=== PATIENT | female | born 1990 ===

== ENCOUNTER → 2017-03-29 | Outpatient (REF) | payer OTHER ==
[2017-03-29 14:08] LABS: BASO % 0.2 % (0.0-1.0); EOS # 0.1 K/mm3 (0.0-0.50); EOS % 1.2 % (0.0-3.0); LARGE UNSTAINED CELL # 0.1 K/mm3 (0.0-0.4); LARGE UNSTAINED CELL % 0.6 % (0.0-4.0); LYMPH # 1.7 K/mm3 (1.5-6.5); LYMPH % 17.8 % (24.0-44.0); MEAN CORPUSCULAR HEMOGLOBIN 25.2 pg (27.0-33.0); MEAN CORPUSCULAR HGB CONC 31.6 g/dl (32.0-36.5); MEAN CORPUSCULAR VOLUME 79.9 fl (80.0-96.0); MONO # 0.4 K/mm3 (0.0-0.8); MONO % 4.2 % (0.0-5.0); NEUTROPHILS # 7.2 K/mm3 (1.8-7.7); PLATELET COUNT, AUTOMATED 222 k/mm3 (150-450); RED CELL DISTRIBUTION WIDTH 21.4 % (11.5-14.5); WHITE BLOOD COUNT 9.4 K/mm3 (4.0-10.0)
[2017-03-29 14:31] LABS: ALBUMIN 3.1 GM/DL (3.2-5.2); ALKALINE PHOSPHATASE 65 U/L (45-117); ALT/SGPT 37 U/L (12-78); ANION GAP 7 MEQ/L (8-16); AST/SGOT 23 U/L (15-37); BILIRUBIN,TOTAL 0.2 MG/DL (0.2-1.0); BLOOD UREA NITROGEN 6 MG/DL (7-18); CALCIUM LEVEL 8.8 MG/DL (8.5-10.1); CARBON DIOXIDE LEVEL 25 MEQ/L (21-32); CHLORIDE LEVEL 106 MEQ/L (98-107); CREATININE FOR GFR 0.55 MG/DL (0.55-1.02); GLOMERULAR FILTRATION RATE > 60.0 (>60); GLUCOSE, FASTING 63 MG/DL (70-105); SODIUM LEVEL 138 MEQ/L (136-145); TOTAL PROTEIN 6.2 GM/DL (6.4-8.2)
[2017-03-29 15:07] LABS: ERYTHROCYTE SEDIMENTATION RATE 18 mm/hr (0-20)
== END ==
LOC: M LABNEURO 13:39
PROVIDERS: ATTEND Psychiatry & Neurology Neurology
DX: R51 Headache (principal)

== ENCOUNTER 2017-07-30 19:32 | Inpatient (IN) | payer OTHER ==
[~2017-07-30] VITALS: Ht 167.6 cm; Wt 79.8 kg
[2017-07-30 19:40] VITALS: BP 143/87
[2017-07-30] MEDS ORDERED: PRENTAB9 PO (19:48)
[2017-07-30] MEDS ORDERED: CLAR10CA3 PO (19:48)
[2017-07-30] MEDS ORDERED: IRON50TA PO (19:49)
[2017-07-30 20:07] VITALS: BP 134/81
[2017-07-30 20:57] VITALS: BP 134/90
[2017-07-30 22:36] LABS: MEAN CORPUSCULAR HEMOGLOBIN 29.9 pg (27.0-33.0); MEAN CORPUSCULAR HGB CONC 34.3 g/dl (32.0-36.5); MEAN CORPUSCULAR VOLUME 87.1 fl (80.0-96.0); WHITE BLOOD COUNT 13.2 10^3/uL (4.0-10.0)
[2017-07-31] VITALS (57 sets, daily range): BP systolic 96–134; BP diastolic 50–87
[2017-07-31] MEDS ORDERED: BUTORPHANOL 2 MG/ML INJ (J0595) IV ONE (02:00)
[2017-07-31] MEDS ORDERED: PROMETHAZINE INJ 25 MG/ML VIAL (J2550) IV ONE (02:00)
[2017-07-31] MEDS ORDERED: PROMETHAZINE INJ 25 MG/ML VIAL (J2550) As Ordered ONE (02:04)
[2017-07-31] MEDS ORDERED: BUTORPHANOL 2 MG/ML INJ (J0595) As Ordered ONE (02:05)
[2017-07-31] MEDS: PRENATAL VITAMINS CHEWABLE TABLET PO SCH (09:00)
[2017-07-31] MEDS ORDERED: LR 1,000 ML IV SCH (09:17)
[2017-07-31] MEDS ORDERED: OXYTOCIN DRIP 30 UNITS in APPROPRIATE DILUENT 1 EA IV SCH (09:30)
[2017-07-31] MEDS ORDERED: FENTANYL 2MCG/ML ROPIVACAINE 0.2% IN 0.9% NACL 200ML IVBAG As Ordered ONE (11:28)
[2017-07-31] MEDS ORDERED: diphenhydrAMINE INJ 50MG/ML VIAL (J1200) IV PRN (13:00)
[2017-07-31] MEDS ORDERED: EPIDURAL COMMENT XX SCH (13:00)
[2017-07-31] MEDS ORDERED: FENTANYL/ROPIVACAINE/NACL BAG 200 ML EPIDURAL SCH (13:00)
[2017-07-31] MEDS ORDERED: LACTATED RINGER'S 1000 ML IV PRN (13:00)
[2017-07-31] MEDS ORDERED: REFRIGERATOR IV KEYS XX PRN (13:00)
[2017-07-31] MEDS ORDERED: ONDANSETRON 4MG/2ML VIAL (J2405) IV PRN ×4 (13:00→17:45)
[2017-07-31] MEDS ORDERED: NALOXONE INJ 0.4 MG/1 ML VIAL (J2310) IV PRN ×3 (13:00→16:35)
[2017-07-31] MEDS ORDERED: EPIDURAL/PCA KEYS XX PRN (13:00)
[2017-07-31] MEDS: ePHEDrine SULFATE 25 MG/5 ML(5MG/ML) SYRINGE IV PRN ×3 (13:11→13:30)
[2017-07-31] MEDS ORDERED: LIDOCAINE PRES-FREE 2% 10ML AMP As Ordered ONE (15:59)
[2017-07-31] MEDS ORDERED: OXYTOCIN INJ 10 UNITS/ML VIAL (J2590) As Ordered ONE (16:01)
[2017-07-31] MEDS ORDERED: ceFAZolin 2 GM/D5W 50 ML IV BAG (J0690) As Ordered ONE (16:03)
[2017-07-31] MEDS ORDERED: ONDANSETRON 4MG/2ML VIAL (J2405) As Ordered ONE (16:03)
[2017-07-31] MEDS ORDERED: BICITRA 30ML SOLN UDC As Ordered ONE (16:03)
[2017-07-31] MEDS ORDERED: KETOROLAC 60 MG/2 ML VIAL (J1885) As Ordered ONE (16:03)
[2017-07-31] MEDS ORDERED: AZITHROMYCIN INJ 500MG VIAL (J0456) As Ordered ONE (16:04)
[2017-07-31] MEDS ORDERED: MORPHINE PRES-FREE INJ 10 MG/10 ML VIAL (J2274) As Ordered ONE (16:05)
[2017-07-31] MEDS ORDERED: AZITHROMYCIN INJ 500 MG, VIAL MATE ADAPTER 1 EACH in D5W 250 ML IV ONE (16:15)
[2017-07-31] MEDS ORDERED: BICITRA 30ML SOLN UDC PO ONE (16:15)
[2017-07-31] MEDS ORDERED: dexameTHASONE 4 MG/ML 1ML VIAL (J1100) As Ordered ONE (16:30)
[2017-07-31] MEDS ORDERED: METOCLOPRAMIDE INJ 10MG/2ML VIAL (J2765) IV PRN (16:35)
[2017-07-31] MEDS ORDERED: NALBUPHINE HCL 10 MG/ML AMP (J2300) IV PRN ×2 (16:35→17:45)
[2017-07-31] MEDS ORDERED: MIDAZOLAM INJ 2 MG/2 ML VIAL (J2250) As Ordered ONE (16:46)
[2017-07-31 16:57] LABS: CORD GAS ABE V -2.2; CORD GAS HCO3 V 23.3 MEQ/L; CORD GAS O2 SAT V 21.8 %; CORD GAS PCO2 V 42.2 mmHg; CORD GAS PH V 7.359 UNITS; CORD GAS PO2 V 12.3 mmHg; CORD GAS SBC V 20.6 MEQ/L; CORD GAS TCO2 V 24.5 MEQ/L
[2017-07-31] MEDS ORDERED: PERCOCET 5MG/325MG TAB PO PRN (17:15)
[2017-07-31] MEDS ORDERED: RHOGAM 300 MCG (1500 IU) INJ (J2790) IM SCH (17:15)
[2017-07-31] MEDS ORDERED: PROMETHAZINE 25 MG TAB PO PRN (17:15)
[2017-07-31] MEDS ORDERED: MEASLES,MUMPS,RUBELLA VACCINE INJ (MMR-II) (90707) SC SCH (17:15)
[2017-07-31] MEDS ORDERED: METHYLERGONOVINE MALEATE 0.2 MG/ML VIAL (J2210) IM PRN (17:15)
[2017-07-31] MEDS ORDERED: fentaNYL 100 MCG/2 ML INJECTION (J3010) IV PRN (17:45)
[2017-07-31] MEDS ORDERED: SIMETHICONE 80 MG CHEW TAB PO PRN (18:45)
[2017-07-31] MEDS: LR 1,000 ML IV SCH (18:46)
[2017-07-31] MEDS: DOCUSATE SODIUM 100 MG CAP PO SCH (22:30)
[2017-07-31] MEDS: KETOROLAC 30 MG/ML VIAL (J1885) IV SCH (22:31)
[2017-08-01 02:00] VITALS: BP 110/68
[2017-08-01] MEDS: LR 1,000 ML IV SCH (05:22)
[2017-08-01] MEDS: KETOROLAC 30 MG/ML VIAL (J1885) IV SCH ×3 (05:22→15:05)
[2017-08-01 06:00] VITALS: BP 106/61
[2017-08-01 06:41] LABS: MEAN CORPUSCULAR HEMOGLOBIN 30.8 pg (27.0-33.0); MEAN CORPUSCULAR HGB CONC 34.1 g/dl (32.0-36.5); MEAN CORPUSCULAR VOLUME 90.4 fl (80.0-96.0); WHITE BLOOD COUNT 12.7 10^3/uL (4.0-10.0)
[2017-08-01] MEDS ORDERED: INFLUENZA QUADRIVALENT PF VACCINE 0.5ML SYRINGE (90686) IM ONE (09:00)
[2017-08-01] MEDS: DOCUSATE SODIUM 100 MG CAP PO SCH ×2 (09:56→19:50)
[2017-08-01] MEDS: PRENATAL VITAMINS CHEWABLE TABLET PO SCH (09:56)
[2017-08-01 10:37] VITALS: BP 100/59
[2017-08-01 14:06] VITALS: BP 103/63
[2017-08-01 18:23] VITALS: BP 116/68
[2017-08-01] MEDS: PERCOCET 5MG/325MG TAB PO PRN (19:49)
[2017-08-01 22:00] VITALS: BP 118/75
[2017-08-01] MEDS: IBUPROFEN 800 MG TAB PO SCH (23:41)
[2017-08-02] MEDS: PERCOCET 5MG/325MG TAB PO PRN ×2 (00:58→09:20)
[2017-08-02 06:00] VITALS: BP 125/83
[2017-08-02] MEDS: IBUPROFEN 800 MG TAB PO SCH (08:19)
[2017-08-02] MEDS: DOCUSATE SODIUM 100 MG CAP PO SCH (08:20)
[2017-08-02] MEDS: PRENATAL VITAMINS CHEWABLE TABLET PO SCH (08:21)
[2017-08-02] MEDS ORDERED: IBUP-1114 PO (11:12)
[2017-08-02] MEDS ORDERED: COLA100C5 PO (11:12)
[2017-08-02] MEDS ORDERED: OXYC1TAB23 PO (11:12)
== END 2017-08-02 12:10 | disposition home or self-care (01) | DRG 766 ==
LOC: M LDO 19:32 → M LDI 21:07 → M OBS 07-31 18:25
PROVIDERS: ADMIT Obstetrics & Gynecology; ATTEND Obstetrics & Gynecology
PROC: 10907ZC Drainage of Amniotic Fluid, Therapeutic from Products of Conception, Via Natural or Artificial Opening (ICD-10-PCS; 2017-07-31)
PROC: 10D00Z1 Extraction of Products of Conception, Low, Open Approach (ICD-10-PCS; principal; 2017-07-31 16:00)
DX: O48.0 Post-term pregnancy (principal); Z37.0 Single live birth; O99.02 Anemia complicating childbirth; Z3A.41 41 weeks gestation of pregnancy; D64.9 Anemia, unspecified; Z79.899 Other long term (current) drug therapy; O76 Abnormality in fetal heart rate and rhythm complicating labor and delivery